=== PATIENT | male | born 1995 | race Caucasian/White ===

== ENCOUNTER 2017-10-13 17:32 | Emergency (ER) | payer BC ==
[2017-10-13 18:11] VITALS: BP 139/73
[2017-10-13] MEDS ORDERED: Ondansetron ODT TAB* 4 MG PO ONE (18:50)
--- NOTE | 2017-10-13 19:10 | UC ---
Deerk Merchant Julia, scribed for Mele Frazier MD on 10/13/17 at 1844 . HPI Febrile Illness - HPI Summary HPI Summary: This patient is a 22 year old M presenting to [facility] accompanied by his girlfriend with a chief complaint of fever for four days. Patient reports body aches, sore throat, nausea, cough, and rhinorrhea. Patient reports fever measured at 102.3 this morning. The patient rates the pain 6/10 in severity. - History of Current Complaint Chief Complaint: UCGeneralIllness Time Seen by Provider: 10/13/17 18:36 Hx Obtained From: Patient Onset/Duration: Started Days Ago Timing: Constant Temperature: 102.3 F - 10/13/17 Pain Intensity: 6 Pain Scale Used: 0-10 Numeric Associated Signs and Symptoms: Other: - body aches, sore throat, nausea, cough, and rhinorrhea - Allergy/Home Medications Allergies/Adverse Reactions: Allergies Allergy/AdvReac Type Severity Reaction Status Date / Time No Known Allergies Allergy Verified 10/13/17 18:11 Home Medications: Home Medications Acetaminophen [Tylenol] 650 mg PO 10/13/17 [History] PMH/Surg Hx/FS Hx/Imm Hx Previously Healthy: Yes - Surgical History Surgical History: None - Family History Known Family History: Positive: Other - Pt denies relvant family history. - Social History Alcohol Use: None Substance Use Type: None Smoking Status (MU): Never Smoked Tobacco Review of Systems Constitutional: Fever, Other - body aches ENT: Sore Throat, Nasal Discharge Respiratory: Cough Gastrointestinal: Nausea All Other Systems Reviewed And Are Negative: Yes Physical Exam Triage Information Reviewed: Yes Appearance: Well-Appearing, No Pain Distress Vital Signs: Initial Vital Signs Temp 99.5 F 10/13/17 18:06 Pulse 92 10/13/17 18:06 Resp 16 10/13/17 18:06 BP 139/73 10/13/17 18:06 Pulse Ox 100 10/13/17 18:06 Eye Exam: Normal ENT: Positive: Pharyngeal erythema, Nasal congestion, Nasal drainage. Negative : TMs normal, Muffled voice, Hoarse voice Neck: Positive: Supple, Nontender Respiratory: Positive: Lungs clear, Normal breath sounds, No respiratory distress Cardiovascular: Positive: RRR, No Murmur Abdomen Description: Positive: Nontender Musculoskeletal: Positive: ROM Intact Neurological: Positive: Muscle Tone Normal Psychological: Positive: Age Appropriate Behavior Skin Exam: Normal Course/Dx - Course Course Of Treatment: 22 yr old male with URI symptoms. - Diagnoses Clinic Provider Diagnoses: upper respiratory infection. nausea Discharge - Discharge Plan Condition: Good Disposition: OTHER Discharge Disposition Comment: sing out to Dr Guzman with influenza and strep swabs pending. Prescriptions: Ondansetron TAB* [Zofran 4 MG Tab*] 4 mg PO Q6H PRN #14 tab PRN Reason: Nausea Patient Education Materials: Acute Nausea and Vomiting (ED), Upper Respiratory Infection (ED) Forms: *Work Release Referrals: No Primary Care Phys,NOPCP [Primary Care Provider] - The documentation as recorded by the Derek callahan Julia accurately reflects the service I personally performed and the decisions made by , Mele Frazier MD.
--- NOTE | 2017-10-13 19:46 | UC ---
Nik Merchant Abhishek, scribed for Adi Samson MD on 10/13/17 at 1941 . - Progress Note Progress Note: The pt was signed out from Dr. Frazier awaiting flu swab test. The flu swab test reported positive findings. PT will begin Tamiflu medication treatment plan. Course/Dx - Diagnoses Provider Diagnoses: Influenza The documentation as recorded by the Nik callahan Abhishek accurately reflects the service I personally performed and the decisions made by , Adi Samson MD.
== END 2017-10-13 19:55 | disposition home or self-care (01) ==
LOC: UCEAST 17:32
DX: J11.1 Influenza due to unidentified influenza virus with other respiratory manifestations (principal); R11.0 Nausea
CPT/HCPCS: 87502; 87651; 99202; A9270-GY; G0463